=== PATIENT | male | born 1980 | race Caucasian/White ===

== ENCOUNTER 2016-09-16 21:24 | Emergency (ER) | payer BC ==
[~2016-09-16] VITALS: Ht 177.8 cm; Wt 207.5 kg
[2016-09-16 21:48] VITALS: Ht 177.8 cm; Wt 207.5 kg
[2016-09-16] MEDS ORDERED: LISI40TA4 PO (22:16)
[2016-09-16] MEDS ORDERED: ATOR20TA PO (22:16)
--- NOTE | 2016-09-16 22:17 | NUR ---
STATUS PT LEANING ON THE SIDE OF THE CART, ROCKING
[2016-09-16 23:03] LABS: BASOPHILS % (AUTO) 0.3 % (0-2); EOSINOPHILS # (AUTO) 0.2 T/MM3 (0-0.5); EOSINOPHILS % (AUTO) 2.3 % (0-4); HCT - HEMATOCRIT 44.1 % (41-53); HGB - HEMOGLOBIN 14.4 GM/DL (13.5-17.5); IMMATURE GRANULOCYTE # (AUTO) 0.05 T/MM3 (0.00-0.03); IMMATURE GRANULOCYTE % (AUTO) 0.5 % (0.0-0.5); LYMPHOCYTES # (AUTO) 3.2 T/MM3 (1-4.8); LYMPHOCYTES % (AUTO) 30.4 % (23-45); MEAN CORPUSCULAR HGB 28.5 UUG (26-34); MEAN CORPUSCULAR HGB CONC(MCHC 32.7 GM/DL (31-37); MEAN CORPUSCULAR VOLUME 87.3 UM3 (80-100); MEAN PLATELET VOLUME 9.5 UM3 (9.4-12.4); MONOCYTES # (AUTO) 0.7 T/MM3 (0-0.8); MONOCYTES % (AUTO) 6.3 % (0-9.0); NEUTROPHILS #(AUTO)-ABSOLUTE 6.4 T/MM3 (1.8-7.7); NEUTROPHILS % (AUTO) 60.2 % (33-66); RED BLOOD COUNT 5.05 M/MM3 (4.50-5.90); WBC - WHITE BLOOD COUNT 10.6 T/MM3 (4.5-11.0)
--- NOTE | 2016-09-16 23:06 | ERPDOC ---
Departure Disposition Decision Date: Sep 17, 2016 Disposition Decision Time: 00:08 Disposition: 01 DISCHARGED HOME, SELF-CARE Impression Impression Impression: Primary Impression: Alteration in consciousness described by patient as "funny turn" Additional Impression: Paresthesias Severity: Moderate Condition: Improved Seen By: Physician only Referrals: CHEL CANALES MD 1 Week Patient Instructions: Paresthesia (ED) Problems/Meds/Labs Reviewed?: Yes Medications reviewed and manag: Yes Additional Instructions: We have evaluated you for emergency and life-threatening causes of your symptoms ; none were found. You have several symptoms suggestive of sleep apnea; some are suggestive of anxiety. Follow up with your doctor to complete your workup. Follow up care ordered?: Yes Mental Status: Alert, Oriented HPI - Cardiac General Chief Complaint: General Stated Complaint: DIZZY,NAUSEA,CHEST DISCOMFORT Time Seen by Provider: 22:15 Source: patient Exam Limitations: no limitations HPI - Cardiac General Initial Comments 35yo man presents to the ER for funny sensation. Sx started yesterday around 1200. Pt feels pressure in the back of his head, a floating sensation, paresthesias down both arms, a fluttering heart beat (but pulse is regular and normal rate), and generally 'funny'. Pt had similar sx almost 1 year ago. Had a full cardiac workup without any diagnosis. Has not had sx since, until yesterday. No known h/o anxiety, but was dx'ed with depression as a teenager. Occurred At: home Onset/Timing: Gradual, Constant Duration: 12-24 hrs Severity: mild Location: shoulder Activities at Onset/Context: none Prior CP/Workup: non-cardiac Modifying Factors: IMPROVES WITH: movement, WORSE WITH: lying down, rest Nitro Today/Relief: no nitro taken today Aspirin Today: contraindicated Associated Symptoms: malaise Hx of Similar Symptoms: Yes Allergies: Coded Allergies: No Known Allergies (Unverified , 09/16/16) Past History Past Medical History Metabolic: hypercholesterolemia, hypertension Physical Exam General Vitals and Pain First Documented Vital Signs Date Time Temp Pulse Resp B/P Pulse Ox O2 Delivery O2 Flow Rate FiO2 09/17/16 00:30 98.2 76 18 156/98 98 Room Air Weight: Kilograms: 207.500 Height (feet): 5 Height (inches): 10.00 Triage Pain Scale: Progress Results/Orders Orders Procedure Category Date Status Time Cbc W/Auto LAB 4/21/17 Complete Diff-Reflex Manual 22:37 Bmp - Basic Metabolic LAB 09/16/16 Complete Panel 22:37 Probnp LAB 09/16/16 Complete 22:37 Troponin I W LAB 09/16/16 Complete Hemolysis Index 22:37 D-Dimer LAB 09/16/16 Complete 22:37 EKG EKG 09/16/16 Taken 22:37 Chest 1 View RAD 09/16/16 Resulted 22:37 Lab Results Laboratory Tests Test 09/16/16 22:57 White Blood Count 10.6T/MM3 Red Blood Count 5.05M/MM3 Hemoglobin 14.4GM/DL Hematocrit 44.1% Mean Corpuscular Volume 87.3UM3 Mean Corpuscular Hemoglobin 28.5UUG Mean Corpuscular Hemoglobin Concent 32.7GM/DL RDW Standard Deviation 41.2FL Platelet Count 316T/MM3 Mean Platelet Volume 9.5UM3 Immature Granulocyte % (Auto) 0.5% Neutrophils (%) (Auto) 60.2% Lymphocytes (%) (Auto) 30.4% Monocytes (%) (Auto) 6.3% Eosinophils (%) (Auto) 2.3% Basophils (%) (Auto) 0.3% Absolute Immature Granulocyte (auto 0.05T/MM3 Absolute Neutrophils (auto) 6.4T/MM3 Absolute Lymphocytes (auto) 3.2T/MM3 Absolute Monocytes (auto) 0.7T/MM3 Absolute Eosinophils (auto) 0.2T/MM3 Absolute Basophils (auto) 0.0T/MM3 D-Dimer 173NG/ML Turbidity < 20 Sodium Level 142MEQ/L Potassium Level 4.0MEQ/L Chloride Level 106MEQ/L Carbon Dioxide Level 23MEQ/L Anion Gap 13MEQ/L Blood Urea Nitrogen 14.0MG/DL Creatinine 1.0MG/DL Glomerular Filtration Rate Calc 86 BUN/Creatinine Ratio 14RATIO Glucose Level 113MG/DL Calculated Osmolality 275MOSM/KG Calcium Level 9.4MG/DL Icterus Index < 2 Troponin I < 0.012ng/ml DM-Mga-P-Type Natriuretic Peptide 142PG/ML Chemistry Specimen Hemolysis < 15 Progress Progress No evidence of FL, PTX, PNA, pericarditis, or dissection. Ddx still includes RADHA (high index of suspicion) vs anxiety. F/u with PCM for further eval/ treatment. Discussed dx, prognosis, and tx with pt, who voiced understanding. EKG EKG : Rate: 60-100 Rhythm: sinus Rolla: normal QRS: normal Intervals: normal ST/T: normal Interpreted by: signing physician Xray Xray : Xray: CXR Portable Interpretation: Normal, Interpreted by ROBERT Benoit DO Sep 16, 2016 23:05
[2016-09-16 23:16] LABS: ANION GAP 13 MEQ/L (5-15); BUN/CREATININE RATIO 14 RATIO (6-26); CALCIUM 9.4 MG/DL (8.4-10.2); CHLORIDE 106 MEQ/L (98-107); CO2 - CARBON DIOXIDE 23 MEQ/L (22-30); GLOMERULAR FILTRATION RATE 86; GLUCOSE 113 MG/DL (75-110); SODIUM 142 MEQ/L (134-144)
[2016-09-16 23:24] LABS: PROBNP 142 PG/ML (0-175)
[2016-09-17 00:30] VITALS: BP 156/98; PULSE 76; RESP 18; TEMP 98.2; O2SAT 98
--- NOTE | 2016-09-18 09:46 | DI ---
Indication: ITS.REASON: Chest pain for two days PROCEDURE: CHEST 1 VIEW: Encounter: Initial Comparison: None FINDINGS: The lungs are clear. There is no abnormal airspace opacity, pleural effusion or pneumothorax identified. The heart size and pulmonary vasculature are within normal limits. There is a double density sign suggesting either left atrial enlargement or a prominent hiatal hernia. No significant skeletal abnormality is seen. IMPRESSION: No acute cardiopulmonary abnormality. .
== END 2016-09-17 00:30 | disposition home or self-care (01) ==
LOC: ED 21:24
DX: R40.4 Transient alteration of awareness (principal); R20.2 Paresthesia of skin; I49.8 Other specified cardiac arrhythmias
CPT/HCPCS: 36415; 80048; 83880; 84484; 85025; 85379; 93005

== ENCOUNTER → 2016-10-09 | Outpatient (CLI) | payer BC ==
[~2016-10-09] MED LIST: ATOR20TA PO; LISI40TA4 PO
== END ==
LOC: SS 20:00
PROVIDERS: ATTEND Family Medicine
DX: G47.33 Obstructive sleep apnea (adult) (pediatric) (principal); G47.34 Idiopathic sleep related nonobstructive alveolar hypoventilation; G47.61 Periodic limb movement disorder; R40.0 Somnolence